=== PATIENT | female | born 1965 | race Caucasian/White ===

== ENCOUNTER 2022-10-02 18:43 | Emergency (ER) | payer OTHER, SELFPAY ==
[2022-10-02 18:46] VITALS: BP 144/86; PULSE 88; RESP 18; TEMP 36.7; O2SAT 100; BMI 26.9
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
[2022-10-02 21:48] VITALS: BP 143/62; PULSE 75; RESP 16; O2SAT 100
== END 2022-10-02 21:49 | disposition home or self-care (01) ==
PROVIDERS: Emergency Provider Emergency Medicine
DX: S01.01XA Laceration without foreign body of scalp, initial encounter (principal); W01.118A Fall on same level from slipping, tripping and stumbling with subsequent striking against other sharp object, initial encounter; Y93.9 Activity, unspecified; Y92.814 Boat as the place of occurrence of the external cause
CPT/HCPCS: 12002; 99282; 99283